=== PATIENT | female | born 1995 | race Caucasian/White ===

== ENCOUNTER 2019-01-18 19:38 | Emergency (ER) | payer OTHER ==
[~2019-01-18] VITALS: Ht 157.5 cm; Wt 93.4 kg
[2019-01-18] MEDS ORDERED: KETO10TA2 PO (23:31)
[2019-01-18] MEDS ORDERED: TESSALON PERLE100 M1 PO (23:31)
[2019-01-18] MEDS ORDERED: ZITHROMAX500 MG PO (23:31)
[2019-01-18] MEDS ORDERED: VENTOLIN HFA18 GM IH (23:31)
== END 2019-01-18 23:55 | disposition home or self-care (01) ==
LOC: ER 19:38
DX: J06.9 Acute upper respiratory infection, unspecified (principal); N91.2 Amenorrhea, unspecified